=== PATIENT | female | born 1960 | race Caucasian/White ===

== ENCOUNTER 2022-07-23 12:08 | Outpatient (REF) | payer OTHER, SELFPAY | END 2022-07-23 12:09 | disposition home or self-care (01) | LOC: HO.BBR 12:08 | PROVIDERS: Visit Provider Hospitalist | DX: Z13.89 Encounter for screening for other disorder (principal) ==

== ENCOUNTER 2022-08-20 11:55 | Outpatient (REF) | payer OTHER, SELFPAY | END 2022-08-20 11:56 | disposition home or self-care (01) | LOC: HO.BBR 11:55 | PROVIDERS: Visit Provider Hospitalist | DX: Z13.89 Encounter for screening for other disorder (principal) ==

== ENCOUNTER 2022-09-19 08:59 | Outpatient (REF) | payer OTHER, SELFPAY | END 2022-09-19 09:00 | disposition home or self-care (01) | LOC: HO.BBR 08:59 | PROVIDERS: Visit Provider Hospitalist | DX: Z13.89 Encounter for screening for other disorder (principal) ==

== ENCOUNTER 2022-10-17 09:03 | Outpatient (REF) | payer OTHER, SELFPAY | END 2022-10-17 09:04 | disposition home or self-care (01) | LOC: HO.BBR 09:03 | PROVIDERS: Visit Provider Hospitalist | DX: Z13.89 Encounter for screening for other disorder (principal) ==

== ENCOUNTER 2022-11-14 09:05 | Outpatient (REF) | payer OTHER, SELFPAY | END 2022-11-14 09:06 | disposition home or self-care (01) | LOC: HO.BBR 09:05 | PROVIDERS: Visit Provider Hospitalist | DX: Z13.89 Encounter for screening for other disorder (principal) ==

== ENCOUNTER 2022-12-12 09:03 | Outpatient (REF) | payer OTHER, SELFPAY | END 2022-12-12 09:04 | disposition home or self-care (01) | LOC: HO.BBR 09:03 | PROVIDERS: PCP Internal Medicine; Visit Provider Hospitalist | DX: Z13.89 Encounter for screening for other disorder (principal) ==

== ENCOUNTER 2023-02-25 08:59 | Outpatient (REF) | payer OTHER, SELFPAY | END 2023-02-25 09:00 | disposition home or self-care (01) | LOC: HO.BBR 08:59 | PROVIDERS: PCP Internal Medicine; Visit Provider Hospitalist | DX: Z13.89 Encounter for screening for other disorder (principal) ==

== ENCOUNTER 2023-03-25 10:11 | Outpatient (REF) | payer OTHER, SELFPAY | END 2023-03-25 10:12 | disposition home or self-care (01) | LOC: HO.BBR 10:11 | PROVIDERS: PCP Internal Medicine; Visit Provider Hospitalist | DX: Z13.89 Encounter for screening for other disorder (principal) ==

== ENCOUNTER 2023-04-22 10:01 | Outpatient (REF) | payer OTHER, SELFPAY | END 2023-04-22 10:02 | disposition home or self-care (01) | LOC: HO.BBR 10:01 | PROVIDERS: PCP Physician Assistant Medical; Visit Provider Hospitalist | DX: Z13.89 Encounter for screening for other disorder (principal) ==

== ENCOUNTER 2023-05-20 09:00 | Outpatient (REF) | payer OTHER, SELFPAY | END 2023-05-20 09:01 | disposition home or self-care (01) | LOC: HO.BBR 09:00 | PROVIDERS: PCP Physician Assistant Medical; Visit Provider Hospitalist | DX: Z13.89 Encounter for screening for other disorder (principal) ==

== ENCOUNTER 2023-07-25 10:07 | Outpatient (REF) | payer OTHER, SELFPAY | END 2023-07-25 10:08 | disposition home or self-care (01) | LOC: HO.BBR 10:07 | PROVIDERS: PCP Physician Assistant Medical; Visit Provider Hospitalist | DX: Z13.89 Encounter for screening for other disorder (principal) ==

== ENCOUNTER 2023-08-22 08:59 | Outpatient (REF) | payer OTHER, SELFPAY | END 2023-08-22 09:00 | disposition home or self-care (01) | LOC: HO.BBR 08:59 | PROVIDERS: PCP Physician Assistant Medical; Visit Provider Hospitalist | DX: Z13.89 Encounter for screening for other disorder (principal) ==

== ENCOUNTER 2023-09-23 09:04 | Outpatient (REF) | payer OTHER, SELFPAY | END 2023-09-23 09:05 | disposition home or self-care (01) | LOC: HO.BBR 09:04 | PROVIDERS: PCP Physician Assistant Medical; Visit Provider Hospitalist | DX: Z13.89 Encounter for screening for other disorder (principal) ==

== ENCOUNTER 2023-10-23 09:06 | Outpatient (REF) | payer OTHER, SELFPAY | END 2023-10-23 09:07 | disposition home or self-care (01) | LOC: HO.BBR 09:06 | PROVIDERS: PCP Physician Assistant Medical; Visit Provider Hospitalist | DX: Z13.89 Encounter for screening for other disorder (principal) ==

== ENCOUNTER 2023-12-09 10:59 | Outpatient (REF) | payer OTHER, SELFPAY | END 2023-12-09 11:00 | disposition home or self-care (01) | LOC: HO.BBR 10:59 | PROVIDERS: PCP Physician Assistant Medical; Visit Provider Hospitalist | DX: Z13.89 Encounter for screening for other disorder (principal) ==

== ENCOUNTER 2024-01-13 10:05 | Outpatient (REF) | payer OTHER, SELFPAY | END 2024-01-13 10:06 | disposition home or self-care (01) | LOC: HO.BBR 10:05 | PROVIDERS: PCP Physician Assistant Medical; Visit Provider Hospitalist | DX: Z13.89 Encounter for screening for other disorder (principal) ==

== ENCOUNTER 2024-02-10 08:54 | Outpatient (REF) | payer OTHER, SELFPAY | END 2024-02-10 08:55 | disposition home or self-care (01) | LOC: HO.BBR 08:54 | PROVIDERS: PCP Physician Assistant Medical; Visit Provider Hospitalist | DX: Z13.89 Encounter for screening for other disorder (principal) ==

== ENCOUNTER 2024-03-19 10:02 | Outpatient (REF) | payer SELFPAY ==
--- OUTSIDE RECORDS SUMMARY | 2024-03-19 11:13 | XMS_ITS | Continuity of Care Document ---
Author Organization [facility] Address [address] [place] [address]- Care Team Providers Care Welding Machine Operator/Tender Name Role Phone Sahara Villavicencio Primary Care Physician [facility] [id number] Date(s): 01/05/24 - 03/07/24 [facility] [address] [place] [id number]- Discharge Disposition: A-D/C Home Attending Physician: Mamta Parra MD, Jose Manuel Velasquez Admitting Physician: Jose Manuel Gonzales MD Referring Physician: Sahara Villavicencio Encounter Type: Disch Recurring OP Allergies, Adverse Reactions, Alerts Substance Criticality Severity Reaction Reaction Severity Status Latex Active Immunizations Given and Recorded Vaccine Date Status Refusal Reason influenza virus vaccine, inactivated 02/02/24 Nicolás rded influenza virus vaccine, inactivated 12/20/22 Nicolás rded influenza virus vaccine, inactivated 01/19/21 Nicolás rded influenza virus vaccine, inactivated 12/05/19 Nicolás rded influenza virus vaccine, inactivated 12/15/13 Nicolás rded influenza virus vaccine, inactivated 12/15/12 Nicolás rded influenza virus vaccine, inactivated 11/26/12 Nicolás rded influenza virus vaccine, inactivated 11/29/11 Nicolás rded influenza virus vaccine, inactivated 12/04/10 Nicolás rded influenza virus vaccine, inactivated 12/25/07 Nicolás rded SARS-CoV-2(COVID-19)mRNA-LNP vac([id number]) 12/20/22 Recorded [id number] 12y+ bivalent booster vax 12/26/21 Recorded zoster vaccine, inactivated 01/26/21 Recorded zoster vaccine, inactivated 12/05/19 Recorded SARS-CoV-2 (COVID-19) mRNA-1273 vaccine 01/19/21 R ecorded SARS-CoV-2 (COVID-19) mRNA-1273 vaccine 04/15/20 R ecorded SARS-CoV-2 (COVID-19) mRNA-1273 vaccine 03/18/20 R ecorded tetanus/diphtheria/pertussis, acel(Tdap) 02/18/18 Recorded tetanus/diphtheria/pertussis, acel(Tdap) 03/17/07 Recorded tetanus/diphtheria/pertussis, acel(Tdap) 11/21/06 Recorded pneumococcal 23-valent vaccine 11/25/13 Recorded Problem List Condition Confirmation Course Effective Dates Status H ealth Status Informant Asthma Confirmed Active Depression Confirmed Active Eczema Confirmed Active Family history of breast cancer Confirmed Active Grief 1 Confirmed Active History of alcoholism Confirmed Active Hemochromatosis Confirmed Active 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 Dense breast tissue on mammogram Confirmed Active Mild tricuspid regurgitation Confirmed Active Premature ventricular beats Confirmed Active Frequent PVCs Confirmed Active Osteoporosis Confirmed Active Colon polyp Confirmed Active Seasonal allergies Confirmed Active 1Paquiles's daughter in December 2021 days after giving from a stroke Vital Signs Most recent to oldest [Reference Range]: 1 Height 168 cm (01/06/24 9:10 AM) Weight 76.1 kg (01/06/24 9:10 AM) Oxygen Saturation [94-100 %] 100 % (01/06/24 9:10 AM) Pulse Rate [55-90 bpm] 70 bpm (01/06/24 9:10 AM) Body Mass Index [18.5-24.99 kg/m2] 26.96 kg/m2 *H* (01/06/24 9:10 AM) Blood Pressure [90-138/55-84 mm Hg] 132/ 75mm Hg (01/06/24 9:10 AM) Temperature [96.8-100.4 DegF] 97.6 DegF (01/06/24 9:10 AM) Mode of Delivery (Oxygen) Room air (01/06/24 9:10 AM) Blood pressure sites Arm, right (01/06/24 9:10 AM) Temperature Route Oral (01/06/24 9:10 AM) Dry Weight 76.1 kg (01/06/24 9:10 AM) Weight Obtained Via Standing scale (01/06/24 9:10 AM) Dry Weight Obtained Via Standing scale (01/06/24 9:10 AM) Social History Social History Type Response Smoking Status Former smoker, quit more than 30 days ago entered on: 07/05/21 Sex Sex Representation Female (finding) Patient Care team information Care Team Personnel Name: Sahara Villavicencio Position: [facility] Associate Professional Member Role: PCP Address: [address] [place] [address] [place] [address]- [place] Telecom: Name: Sanna Claros MD Position: [facility] DENTAL LAB TECHNICIAN MD Member Role: Lifetime DENTAL LAB TECHNICIAN Physician Address: [address] [place] [address]- [place] Telecom: Name: John Griffin RN Position: [facility] Onco RN Member Role: Primary Care Nurse Name: Mamta Parra MD, Jose Manuel Velasquez Position: [facility] Physician - Oncology Med Service: Hematology & Oncology Member Role: Admitting Physician Address: [address] [place] [address] Hem/[place] [address]- Telecom: Care Team Related Persons Name: ADAM COOPER Insurance Providers Guarantor name: CHELSEA COOPER Health Plan Information #: 1 Payer: [employer] Member Number: [id number] Policy Number: NA Group Number: [id number] Health Plan Information #: 2 Payer: [employer] Member Number: [id number] Policy Number: NA Group Number: NA
== END 2024-03-19 10:03 | disposition home or self-care (01) ==
LOC: HO.BBR 10:02
PROVIDERS: PCP Physician Assistant Medical; Visit Provider Hospitalist
DX: Z13.89 Encounter for screening for other disorder (principal)

== ENCOUNTER 2024-04-20 10:06 | Outpatient (REF) | payer SELFPAY | END 2024-04-20 10:07 | disposition home or self-care (01) | LOC: HO.BBR 10:06 | PROVIDERS: Visit Provider Hospitalist | DX: Z13.89 Encounter for screening for other disorder (principal) ==